=== PATIENT | female | born 1940 | race Caucasian/White ===

== ENCOUNTER 2016-06-10 12:19 | Emergency (ER) | payer OTHER ==
[2016-06-10 12:25] VITALS: BMI 32.4
[2016-06-10 14:17] LABS: BASOPHIL 0.5 % (0-2.0); EOSINOPHIL 1.3 % (0-4.5); MCH 29.1 pg (25.7-33.7); MCHC 32.2 g/dl (32.0-36.0); MEAN CELL VOLUME 90.6 fl (80-96); MEAN PLT VOLUME 12.1 fl (7.5-11.1); NEUTROPHILS 63.4 % (42.8-82.8); PLATELET COUNT 116 K/MM3 (134-434); RDW 13.9 % (11.6-15.6); URINE APPEARANCE CLEAR; URINE BILIRUBIN NEGATIVE (NEGATIVE); URINE BLOOD NEGATIVE (NEGATIVE); URINE COLOR YELLOW; URINE GLUCOSE (UA) NEGATIVE (NEGATIVE); URINE KETONE NEGATIVE (NEGATIVE); URINE NITRITE NEGATIVE (NEGATIVE); URINE PROTEIN NEGATIVE (NEGATIVE); URINE UROBILINOGEN NEGATIVE E.U./dl (0.2-1.0); WHITE BLOOD COUNT 4.1 K/mm3 (4.0-10.0)
[2016-06-10 14:21] LABS: URINE LEUK ESTERASE 3+ (NEGATIVE)
[2016-06-10 14:31] LABS: URINE MUCUS FEW; URINE RBC 7 /hpf (0-3); URINE WBC 60 /hpf (3-5)
[2016-06-10 14:44] LABS: CALCIUM 8.9 mg/dL (8.5-10.1); COCKROFT - GAULT 60.724; CREATININE 1.1 mg/dL (0.55-1.02)
[2016-06-10 14:47] LABS: BILIRUBIN,TOTAL 0.6 mg/dL (0.2-1.0); TOT PROT 7.3 g/dl (6.4-8.2)
--- NOTE | 2016-06-10 15:23 | PDOC ---
History of Present Illness - General Chief Complaint: Pain Stated Complaint: PAIN Time Seen by Provider: 06/10/16 13:10 History Source: Patient Exam Limitations: No Limitations - History of Present Illness Initial Comments: 06/10/16 15:05 75-year-old female presents the ED with complaints of left flank and left hip pain for the past 2 days associated mild urinary frequency. Patient denies fever , chills, nausea, change in appetite, headache or weakness as initially stated in triage. Patient denies pain worsened with ambulation but does state feels like it's arthritis pain also which she states sometimes affects her hips. Patient states did not take anything for the above and decided come to the ER. Timing/Duration: other (3 days ) Severity: moderate Associated Symptoms: reports: denies symptoms Past History - Past Medical History Allergies/Adverse Reactions: Allergies Allergy/AdvReac Type Severity Reaction Status Date / Time No Known Allergies Allergy Verified 06/10/16 12:25 Home Medications: Ambulatory Orders Atorvastatin Ca [Lipitor] 10 mg PO HS 06/10/16 Calcium Carbonate/Vitamin D3 [Calcium 500 + Vit D3 400 Tab] 1 each PO BID Clotrimazole [Clotrimazole AF] 28 gm TP BID 06/10/16 Levothyroxine Sodium [Levo-T] 50 mcg PO DAILY 06/10/16 Losartan/Hydrochlorothiazide [Hyzaar 100-12.5 Tablet] 1 each PO DAILY 06/10/16 Multivitamins [Tab-A-Vit -] 1 tab PO DAILY 06/10/16 Omeprazole 40 mg PO DAILY 06/10/16 Pioglitazone HCl/Metformin HCl [Actoplus Met 15 mg-500 mg Tab] 1 each PO BID Diabetes: Yes HTN: Yes - Psycho/Social/Smoking Cessation Hx Anxiety: No Suicidal Ideation: No Smoking History: Never smoked Have you smoked in the past 12 months: No Information on smoking cessation initiated: No Substance Use Type: None Patient Lives Alone: No Review of Systems - Review of Systems Able to Perform ROS?: Yes Constitutional: No: Symptoms Reported HEENTM: No: Symptoms Reported Respiratory: No: Symptoms reported Cardiac (ROS): No: Symptoms Reported ABD/GI: No: Symptoms Reported : Yes: Frequency, Flank Pain Musculoskeletal: Yes: Back Pain Integumentary: No: Symptoms Reported Neurological: No: Symptoms reported Endocrine: No: Symptoms Reported Hematologic/Lymphatic: No: Symptoms Reported *Physical Exam - Vital Signs Last Vital Signs Temp Pulse Resp BP Pulse Ox 98.8 F 78 18 123/76 98 06/10/16 12:21 06/10/16 12:21 06/10/16 12:21 06/10/16 12:21 06/10/16 12:21 - Physical Exam General Appearance: Yes: Nourished, Appropriately Dressed. No: Apparent Distress HEENT: positive: EOMI, [place]. negative: Pale Conjunctivae Respiratory/Chest: positive: Lungs Clear, Normal Breath Sounds. negative: Respiratory Distress, Accessory Muscle Use Cardiovascular: positive: Regular Rhythm, Regular Rate. negative: Murmur Gastrointestinal/Abdominal: positive: Soft, Tenderness (mild left flank). negative: Normal Bowel Sounds, Distended, Guarding, Rebound Musculoskeletal: positive: Vertebral Tenderness (laterally left at L5 and L6 level). negative: CVA Tenderness (L) Extremity: positive: Normal Capillary Refill, Normal Inspection, Tender. negative: Normal Range of Motion Integumentary: positive: Normal Color, Warm, Moist Neurologic: positive: Motor Strength 5/5 (ambulatory) ED Treatment Course - LABORATORY CBC & Chemistry Diagram: 06/10/16 14:04 06/10/16 14:04 - ADDITIONAL ORDERS Additional order review: Laboratory Results 06/10/16 06/10/16 14:04 14:04 Sodium 139 Potassium 4.4 Chloride 102 Carbon Dioxide 28 Anion Gap 9 BUN 23 H D Creatinine 1.1 H D Creat Clearance w eGFR 48.55 Random Glucose 70 L D Calcium 8.9 Total Bilirubin 0.6 AST 15 D ALT 19 D Alkaline Phosphatase 64 Total Protein 7.3 Albumin 4.0 Urine Color Yellow Urine Appearance Clear Urine pH 5.0 Ur Specific [place] 1.024 Urine Protein Negative Urine Glucose (UA) Negative Urine Ketones Negative Urine Blood Negative Urine Nitrite Negative Urine Bilirubin Negative Urine Urobilinogen Negative Ur Leukocyte Esterase 3+ H Urine RBC 7 Urine WBC 60 Ur Epithelial Cells Rare Urine Mucus Few 06/10/16 14:04 RBC 3.78 MCV 90.6 MCHC 32.2 RDW 13.9 MPV 12.1 H Neutrophils % 63.4 D Lymphocytes % 20.1 D Monocytes % 14.7 H D Eosinophils % 1.3 D Basophils % 0.5 - RADIOLOGY Radiology Studies Ordered: Category Date Time Status HIP & PELVIS-LEFT [RAD] Stat Radiology 06/10/16 14:15 Completed SPINE-LUMBAR ONLY [RAD] Stat Radiology 06/10/16 14:16 Completed Medical Decision Making - Medical Decision Making 06/10/16 14:35 Patient with left flank and left hip pain for the past 2 days associated with urinary frequency. Patient concerning for urinary tract infection versus Maur[place] versus arthritis. Patient ordered for labs, x-ray, and urine. 06/10/16 15:36 X-ray shows degenerative changes. Vacuum phenomenon of L4-L5 with slight subluxation of 5 on S1. Patient be discharged home with Bactrim 10 days. Urine culture was sent. 06/10/16 15:38 Laboratory Tests 06/10/16 06/10/16 06/10/16 14:04 14:04 14:04 WBC 4.1 D Hgb 11.0 D Hct 34.2 Plt Count 116 L D MPV 12.1 H Neutrophils % 63.4 D Monocytes % 14.7 H D Sodium 139 Potassium 4.4 Chloride 102 Carbon Dioxide 28 Anion Gap 9 BUN 23 H D Creatinine 1.1 H D Creat Clearance w eGFR 48.55 Random Glucose 70 L D Calcium 8.9 Total Bilirubin 0.6 AST 15 D ALT 19 D Alkaline Phosphatase 64 Total Protein 7.3 Albumin 4.0 Urine Ketones Negative Urine Nitrite Negative Ur Leukocyte Esterase 3+ H Urine WBC 60 patient given apple juice secondary to glucose reading *DC/Admit/Observation/Transfer Diagnosis at time of Disposition: Pyelonephritis - Discharge Dispostion Disposition: HOME Condition at time of disposition: Good - Referrals Referrals: Madalyn Byrd MD [Primary Care Provider] - - Patient Instructions Printed Discharge Instructions: DI for Kidney Infection Additional Instructions: Patient please take medication as prescribed until completed and follow-up with your PCP. May take Tylenol Motrin for discomfort.
[2016-06-10 16:10] VITALS: BP 111/62; PULSE 69; TEMP 98
== END 2016-06-10 16:10 | disposition home or self-care (01) ==
LOC: JER 12:19
DX: N12 Tubulo-interstitial nephritis, not specified as acute or chronic (principal); E11.9 Type 2 diabetes mellitus without complications; I10 Essential (primary) hypertension
CPT/HCPCS: 36415; 72100-TC; 73523-TC; 80053; 81003; 81015; 85025; 87086; 99285-25

== ENCOUNTER → 2020-12-19 | Day surgery (SDC) | payer OTHER | END | disposition home or self-care (01) | LOC: JRADIR 09:48 | PROVIDERS: ATTEND Internal Medicine Endocrinology, Diabetes & Metabolism | PROC: BG44ZZZ Ultrasonography of Thyroid Gland (ICD-10-PCS; principal; 2020-12-19) | DX: E04.2 Nontoxic multinodular goiter (principal); Z53.8 Procedure and treatment not carried out for other reasons | CPT/HCPCS: 76536-TC ==

== ENCOUNTER 2021-07-16 17:10 | Emergency (ER) | payer OTHER ==
[2021-07-16 17:28] VITALS: BP 120/75; PULSE 86; TEMP 98.6; BMI 32.4
[2021-07-16] MEDS ORDERED: ACETAMINOPHEN 500 MG TABLET (FP) PO ONE (18:46)
[2021-07-16] MEDS ORDERED: ACETAMINOPHEN 500 MG TABLET (FP) ONE (18:56)
[2021-07-16 20:44] LABS: EPI CELLS 8 /uL (0-25.1); HYALINE CASTS 1 /uL (0-3.1); PH,URINE 5.5 (5.0-8.0); URINE APPEARANCE CLEAR; URINE BACTERIA >9,000 /uL (0-1359); URINE BILIRUBIN NEGATIVE (NEGATIVE); URINE COLOR YELLOW; URINE GLUCOSE (UA) NEGATIVE (NEGATIVE); URINE KETONE NEGATIVE (NEGATIVE); URINE LEUK ESTERASE 1+ (NEGATIVE); URINE NITRITE POSITIVE (NEGATIVE); URINE PROTEIN NEGATIVE (NEGATIVE); URINE RBC 4 /uL (0-23.9); URINE UROBILINOGEN 0.2 mg/dL (0.2-1.0); URINE WBC 58 /uL (0-25.8)
== END 2021-07-16 21:11 | disposition home or self-care (01) ==
LOC: JERFT 17:10 → JER 17:10 → JERFT 21:11
DX: N30.90 Cystitis, unspecified without hematuria (principal)
CPT/HCPCS: 73502-TC-LT-FY; 81003; 87086; 87186; 99284-25

== ENCOUNTER 2023-03-07 13:03 | Emergency (ER) | payer OTHER ==
[2023-03-07 13:13] VITALS: BMI 32.4
[2023-03-07 15:09] VITALS: RESP 18
[2023-03-07] MEDS ORDERED: ACETAMINOPHEN 500 MG TABLET (FP) PO ONE (15:16)
[2023-03-07] MEDS ORDERED: SODIUM CHLORIDE 0.9% 500 ML INFUS.BAG IV ONE (15:16)
[2023-03-07] MEDS ORDERED: ONDANSETRON 4 MG/2 ML VIAL IVPUSH ONE (15:16)
[2023-03-07] MEDS ORDERED: ONDANSETRON 4 MG/2 ML VIAL ONE (15:23)
[2023-03-07] MEDS ORDERED: ACETAMINOPHEN INJECTION 100 ML IVPB ONE (15:23)
[2023-03-07] MEDS ORDERED: ACETAMINOPHEN 1000 MG/100 ML BAG IVPB ONE (15:26)
[2023-03-07 16:15] LABS: BASO % 0.5 % (0-2.0); EOS % 1.1 % (0-4.5); HEMATOCRIT 37.2 % (32.4-45.2); HEMOGLOBIN 12.1 GM/dL (10.7-15.3); LYMPH % 7.1 % (8-40); MCH 27.9 pg (25.7-33.7); MCHC 32.5 g/dl (32.0-36.0); MEAN CELL VOLUME 85.9 fl (80-96); MEAN PLT VOLUME 11.4 fl (7.5-11.1); MONO % 8.7 % (3.8-10.2); NEUT % 82.6 % (42.8-82.8); PLATELET COUNT 164 10^3/uL (134-434); RBC 4.33 M/mm3 (3.60-5.2); RDW 15.2 % (11.6-15.6); WHITE BLOOD COUNT 6.2 K/mm3 (4.0-10.0)
[2023-03-07 16:30] LABS: POTASSIUM 4.4 mmol/L (3.5-5.1)
[2023-03-07 16:32] LABS: ALBUMIN 4.5 g/dl (3.4-5.0); BLOOD UREA NITROGEN 20.1 mg/dL (7-18); CALCIUM 10.1 mg/dL (8.5-10.1)
[2023-03-07 16:35] LABS: CREATININE 1.1 mg/dL (0.55-1.3)
[2023-03-07 16:37] LABS: BILIRUBIN,TOTAL 0.5 mg/dL (0.2-1); TOT PROT 8.4 g/dl (6.4-8.2)
[2023-03-07] MEDS ORDERED: AZITHROMYCIN 250 MG TABLET PO ONE (17:07)
[2023-03-07] MEDS ORDERED: AMOX TR/POT CLAV 875MG/125MG TABLETS (FP) PO ONE (17:07)
[2023-03-07] MEDS ORDERED: AMOX TR/POT CLAV 875MG/125MG TABLETS (FP) ONE (17:22)
[2023-03-07] MEDS ORDERED: AZITHROMYCIN 500 MG TABLET ONE (17:22)
[2023-03-07 17:30] VITALS: BP 115/70; PULSE 93; TEMP 98.6
== END 2023-03-07 17:52 | disposition home or self-care (01) ==
LOC: JERFT 13:03
PROC: 3E033NZ Introduction of Analgesics, Hypnotics, Sedatives into Peripheral Vein, Percutaneous Approach (ICD-10-PCS; principal; 2023-03-07)
PROC: 3E033GC Introduction of Other Therapeutic Substance into Peripheral Vein, Percutaneous Approach (ICD-10-PCS; 2023-03-07)
DX: R09.81 Nasal congestion (principal); R05.9 Cough, unspecified; R11.0 Nausea; R51.9 Headache, unspecified; M79.10 Myalgia, unspecified site; M54.6 Pain in thoracic spine; R63.0 Anorexia; J10.1 Influenza due to other identified influenza virus with other respiratory manifestations; J18.9 Pneumonia, unspecified organism; Z20.822 Contact with and (suspected) exposure to COVID-19
CPT/HCPCS: 0241U-QW; 36415; 71046-TC-FY; 80053; 85025; 96374; 96375; 99284-25